=== PATIENT | male | born 1995 | race Caucasian/White ===

== ENCOUNTER 2017-08-21 00:59 | Emergency (ER) | payer SELFPAY ==
[2017-08-21] MEDS: IPRATRPIUM/ALBUTEROL 0.5/2.5MG 3 ML NEBU. NEB (02:24)
[2017-08-21] MEDS: IV NORMAL SALINE 1000ML BAG 1,000 ML IV (02:30)
[2017-08-21] MEDS: predniSONE 10 MG TABLET PO (02:38)
[2017-08-21] MEDS: AZITHROMYCIN 250 MG TABLET. PO (03:01)
== END 2017-08-21 03:09 | disposition home or self-care (01) ==
LOC: ER 00:59
DX: J20.9 Acute bronchitis, unspecified (principal); J45.909 Unspecified asthma, uncomplicated; F12.10 Cannabis abuse, uncomplicated; Z79.899 Other long term (current) drug therapy; Z88.0 Allergy status to penicillin; Z88.8 Allergy status to other drugs, medicaments and biological substances
CPT/HCPCS: 71045; 94640; 99284-25; J7030; J7512; J7620; Q0144

== ENCOUNTER 2018-04-13 18:26 | Emergency (ER) | payer SELFPAY ==
[~2018-04-13] VITALS: Ht 175.3 cm; Wt 79.4 kg
[~2018-04-13 18:26] MED LIST: AZIT250T6 PO; PRED50TA PO
[2018-04-13 18:46] VITALS: BP 119/65
[2018-04-13] MEDS ORDERED: ALBU2.5V8 IH (18:57)
--- NOTE | 2018-04-13 19:03 | PHYS DOC ---
Past Medical History Past Medical History: Other Additional Past Medical Histor: ASPIRATION PNEUMONIA Past Surgical History: Other Additional Past Surgical Histo: STOMACH TIED IN KNOT AROUND ESOPHAGUS, FUNDIPLIFICATION Alcohol Use: Rarely Drug Use: Marijuana Adult General Chief Complaint Chief Complaint: FLU SYMPTOM HPI HPI Patient is a 22 year old female who presents with nonproductive cough body aches, sore throat, subjective fever and headache. Symptom onset 4 days ago. No measured fever today, no wheezing, shortness of breath. History of recurrent aspiration pneumonia. History of asthma but reports occasional asthma-like symptoms. Patient is a nonsmoker. He is taking NyQuil at home with some symptom relief. He has missed work does require work note. Currently no PCP. [] Review of Systems Review of Systems Review symptoms as per history of present illness. All other review symptoms are negative. All other systems were reviewed and found to be within normal limits, except as documented in this note. Allergies Allergies Allergies Coded Allergies Type Severity Reaction Last Updated Verified Penicillins Allergy Intermediate 01/31/14 No omeprazole Allergy Intermediate 01/31/14 No Physical Exam Physical Exam Constitutional: No acute distress,, well hydrated. [] HENT: Normocephalic, atraumatic, bilateral external ears normal, oropharynx moist, no oral exudates, nose congestion, no rhinorrhea. [] Eyes: PERRLA, EOMI, conjunctiva normal, no discharge. [] Neck: Normal range of motion, no tenderness, supple, no stridor. [] Cardiovascular:Heart rate regular rhythm, no murmur [] Lungs & Thorax: Sounds bilaterally diminished, occasional coarse wheeze[] Abdomen: Bowel sounds normal, soft, no tenderness. [] Skin: Warm, dry, no erythema, no rash. [] Back: No tenderness, no CVA tenderness. [] Extremities: No tenderness, no edema. [] Neurologic: Alert and oriented X 3, normal motor function, normal sensory function, no focal deficits noted. [] Psychologic: Affect normal, judgement normal, mood normal. [] Current Patient Data Vital Signs Vital Signs Date Time Temp Pulse Resp B/P (MAP) Pulse Ox O2 Delivery O2 Flow Rate FiO2 04/13/18 18:46 99.0 85 14 119/65 (83) 97 Room Air 99.0 EKG EKG [] Radiology/Procedures Radiology/Procedures [ Course & Med Decision Making Course & Med Decision Making Pertinent Labs and Imaging studies reviewed. (See chart for details) [Flulike illness without respiratory compromise. Recommend supportive care with PCP follow-up as needed] Tammie Disclaimer Tammie Disclaimer This electronic medical record was generated, in whole or in part, using a voice recognition dictation system. Departure Departure Impression: Primary Impression: Influenza Disposition: HOME, SELF-CARE Condition: GOOD Patient Instructions: Influenza, Adult, [id number] Additional Instructions: Please increase fluids, take ibuprofen for pain and Nyquil as needed for additional relief. Use inhaler as needed. Follow up with your PCP in 2-3 days for re-evaluation. Scripts Albuterol Sulfate (PROVENTIL HFA INHALER) 6.7 Gm Hfa.aer.ad 1 PUFF IH PRN Q4HRS PRN for FOR ASTHMA, #1 INHALER 0 Refills Prov: CLEMENTE MEI DO 04/13/18 CLEMENTE MEI DO Apr 13, 2018 19:02
== END 2018-04-13 19:10 | disposition home or self-care (01) ==
LOC: ER 18:26
DX: J11.1 Influenza due to unidentified influenza virus with other respiratory manifestations (principal); M79.18 Myalgia, other site; Z88.8 Allergy status to other drugs, medicaments and biological substances; Z88.0 Allergy status to penicillin
CPT/HCPCS: 99283

== ENCOUNTER 2018-06-27 19:27 | Emergency (ER) | payer SELFPAY ==
[~2018-06-27] VITALS: Ht 172.7 cm; Wt 74.8 kg
[~2018-06-27 19:27] MED LIST changes: +ALBU2.5V8 IH
[2018-06-27 19:40] VITALS: BP 142/77
--- NOTE | 2018-06-27 19:49 | PHYS DOC ---
Past Medical History Past Medical History: Other Additional Past Medical Histor: ASPIRATION PNEUMONIA (TITO BEAN APRN) Past Surgical History: Other Additional Past Surgical Histo: STOMACH TIED IN KNOT AROUND ESOPHAGUS,FUNDIPLIFICATION (TITO BEAN APRN) Alcohol Use: Rarely Drug Use: Marijuana (TITO BEAN APRN) Adult General Chief Complaint Chief Complaint: ABSCESS HPI HPI Patient is a 23 year old male who presents with an abscess on the right upper back for one week. Patient denies any fever. (TITO BEAN APRN) Review of Systems Review of Systems Constitutional: Denies fever or chills [] Musculoskeletal: Denies back pain or joint pain [] Integument: Upper back abscess. Neurologic: Denies headache, focal weakness or sensory changes [] All other systems were reviewed and found to be within normal limits, except as documented in this note. (TITO BEAN APRN) Current Medications Current Medications Current Medications Medications (Trade) Dose Ordered Sig/Bassam Start Time Stop Time Status Last Admin Dose Admin Diphtheria/ Tetanus/Acell Pertussis (Boostrix) 0.5 ml ONCE ONCE 06/27/18 20:00 06/27/18 20:01 DC 06/27/18 20:17 0.5 ML Lidocaine/Sodium Bicarbonate (Buffered Lidocaine 1%) 3 ml 1X ONCE 06/27/18 20:00 06/27/18 20:01 DC 06/27/18 20:16 3 ML (LASHELL MCKNIGHT MD) Allergies Allergies Allergies Coded Allergies Type Severity Reaction Last Updated Verified Penicillins Allergy Intermediate 01/31/14 No omeprazole Allergy Intermediate 01/31/14 No (LASHELL MCKNIGHT MD) Physical Exam Physical Exam Constitutional: Well developed, well nourished, no acute distress, non-toxic appearance. [] Skin: Right upper back with an indurated area approximately 2 x 2 centimeters, the area is erythematous and fluctuant. The area is warm to touch Back: No tenderness, no CVA tenderness. [] Extremities: No tenderness, no cyanosis, no clubbing, ROM intact, no edema. [] Neurologic: Alert and oriented X 3, normal motor function, normal sensory function, no focal deficits noted. [] Psychologic: Affect normal, judgement normal, mood normal. [] (TITO BEAN APRN) Current Patient Data Vital Signs Vital Signs Date Time Temp Pulse Resp B/P (MAP) Pulse Ox O2 Delivery O2 Flow Rate FiO2 06/27/18 19:40 98.8 106 16 142/77 (98) 98 Room Air 98.8 (LASHELL MCKNIGHT MD) EKG EKG [] (TITO BEAN APRN) Radiology/Procedures Radiology/Procedures Indication: abscess right upper back Procedure: The patient was positioned appropriately. Local anesthesia was 1% buffered lidocaine. An incision was then made over the apex of the lesion and moderate amount of yellow bloody material was expressed. The drainage cavity was irrigated and covered with sterile gauze. The patients tetanus status updated as needed. The patient tolerated the procedure well. Complications: none.[] (TITO BEAN APRN) Course & Med Decision Making Course & Med Decision Making Pertinent Labs and Imaging studies reviewed. (See chart for details) This is a 23-year-old male patient who presents to the ED today with an abscess on the right upper back that was drained by me as noted in procedures, tetanus up dated. Discharged on Bactrim. Wound care instructions and return precautions provided. (TITO BEAN APRN) Course & Med Decision Making Staff Physician Addendum: I was working in the ER during the course of this patient's visit. I was available for consultation as needed, but I was not directly involved in the care of this patient. (LASHELL MCKNIGHT MD) Dragon Disclaimer Dragon Disclaimer This electronic medical record was generated, in whole or in part, using a voice recognition dictation system. (TITO BEAN APRN) Departure Departure Impression: Primary Impression: Abscess of back Additional Impression: Cellulitis of back Disposition: 01 HOME, SELF-CARE Condition: STABLE Referrals: NO PCP (PCP) follow up with your doctor in 1-2 weeks Patient Instructions: Abscess, Care After Additional Instructions: You have an abscess to her back that was drained in the emergency room, change the dressing every day as discussed. Complete your antibiotics. Follow-up with your doctor in 1-2 weeks. Scripts Sulfamethoxazole/Trimethoprim (BACTRIM DS TABLET) 1 Each Tablet 1 TAB PO BID, #20 TAB Prov: TITO BEAN APRN 06/27/18 Problem Qualifiers TITO BEAN APRN Jun 27, 2018 19:49 LASHELL MCKNIGHT MD Jun 28, 2018 05:46
[2018-06-27] MEDS ORDERED: DIPHTH,PERTUSS(ACELL),TET TOX 0.5 ML DISP.SYRIN. VAX IM ONE (20:00)
[2018-06-27] MEDS ORDERED: LIDOCAINE WITH 8.4% SOD BICARB 3 ML DISP.SYRIN. INJ ONE (20:00)
[2018-06-27] MEDS ORDERED: SULF1TAB24 PO (20:56)
== END 2018-06-27 21:11 | disposition home or self-care (01) ==
LOC: ER 19:27
DX: L02.212 Cutaneous abscess of back [any part, except buttock and flank] (principal); L03.312 Cellulitis of back [any part except buttock and flank]; Z88.0 Allergy status to penicillin; Z88.8 Allergy status to other drugs, medicaments and biological substances
CPT/HCPCS: 10060; 90471; 90715; 99283-25

== ENCOUNTER 2019-03-09 13:29 | Emergency (ER) | payer SELFPAY ==
[~2019-03-09] VITALS: Ht 167.6 cm; Wt 83.9 kg
[~2019-03-09 13:29] MED LIST changes: -ALBU2.5V8 IH; +PROVENTIL HFA6.7 GM IH; +SULF1TAB24 PO
[2019-03-09 13:47] VITALS: BP 151/95
--- NOTE | 2019-03-09 14:47 | PHYS DOC ---
Past Medical History Past Medical History: Other Additional Past Medical Histor: ASPIRATION PNEUMONIA Past Surgical History: Other Additional Past Surgical Histo: STOMACH TIED IN KNOT AROUND ESOPHAGUS,FUNDIPLIFICATION Alcohol Use: Rarely Drug Use: Marijuana Adult General Chief Complaint Chief Complaint: BACK PAIN OR INJURY HPI HPI Patient is a 23 year old male who presents to the emergency department with complaints of bilateral low back pain, and pain in his right shoulder leg for the last 4-5 days. Patient states symptoms first started with nausea, vomiting, diarrhea, body aches, fatigue 5 days ago. The symptoms have resolved yet he continues to have back pain. Patient denies any recent injury, numbness, tingling, weakness, saddle anesthesia, or loss of bowel/bladder control. He states that the pain increases when he lies down or sits down. He states that his back feels better when he is upright. He denies any fever, cough, shortness of breath, dizziness, or headache. He currently rates the pain 8 out of 10 on the pain scale, the pain is exacerbated and improves as described above. All other ROS is neg unless otherwise noted in HPI. Review of Systems Review of Systems See Above Allergies Allergies Allergies Coded Allergies Type Severity Reaction Last Updated Verified Penicillins Allergy Intermediate 01/31/14 No omeprazole Allergy Intermediate 01/31/14 No Physical Exam Physical Exam See Above Constitutional: Well developed, well nourished, no acute distress, non-toxic appearance. [] HENT: Normocephalic, atraumatic, bilateral external ears normal, nose normal. [] Eyes: PERRLA, EOMI, conjunctiva normal, no discharge. [] Neck: Normal range of motion, no tenderness, supple, no stridor. [] Cardiovascular:Heart rate regular rhythm, no murmur [] Lungs & Thorax: Respirations even and unlabored, no retractions, no respiratory distress] Skin: Warm, dry, no erythema, no rash. [] Back: No bony tenderness, no CVA tenderness; bilateral lumbar paraspinal tenderness to palpation, right thoracic paraspinal tenderness to palpation[] Extremities: No cyanosis, ROM intact, no edema. [] Neurologic: Alert and oriented X 3, no focal deficits noted. [] Psychologic: Affect normal, judgement normal, mood normal. [] Current Patient Data Vital Signs Vital Signs Date Time Temp Pulse Resp B/P (MAP) Pulse Ox O2 Delivery O2 Flow Rate FiO2 03/09/19 13:47 98.8 62 16 151/95 (113) 99 Room Air 98.8 EKG EKG [] Radiology/Procedures Radiology/Procedures [] Course & Med Decision Making Course & Med Decision Making Pertinent Labs and Imaging studies reviewed. (See chart for details) dx: medical screening exam A medical screening exam was performed, patient was found to have no emergent medical condition. The plan of care would've included medications and back pain instructions. However, the patient eloped after talking with registration. [] [] Dragon Disclaimer Dragon Disclaimer This electronic medical record was generated, in whole or in part, using a voice recognition dictation system. Departure Departure Impression: Primary Impression: Encounter for medical screening examination Disposition: HOME, SELF-CARE (pt eloped after speaking with registration) Condition: STABLE Referrals: NO PCP (PCP) NATALIYA CISNEROS APRN Mar 09, 2019 14:47
== END 2019-03-09 15:56 | disposition home or self-care (01) ==
LOC: ER 13:29
DX: M54.5 Low back pain (principal); R11.2 Nausea with vomiting, unspecified; R19.7 Diarrhea, unspecified; M25.511 Pain in right shoulder; R53.83 Other fatigue; F12.90 Cannabis use, unspecified, uncomplicated; Z98.890 Other specified postprocedural states
CPT/HCPCS: 99281